=== PATIENT | female | born 1975 | race Caucasian/White ===

== ENCOUNTER 2023-12-19 19:30 | Emergency (ER) | payer OTHER ==
[2023-12-19] MEDS: Orphenadrine 60 MG/2 ML Inj IM ONE (20:24)
[2023-12-19 20:56] LABS: BASOPHILS PERCENT AUTO 0.2 % (0.0-1.0); EOSINOPHILS PERCENT AUTO 1.7 % (1.0-3.0); HEMATOCRIT 34.2 % (37.0-47.0); HEMOGLOBIN 11.5 g/dL (12.0-16.0); LYMPHOCYTES PERCENT AUTO 16.2 % (20.5-50.1); MEAN CORPUSCULAR HEMOGLOBIN 30.8 pg (27.0-34.0); MEAN CORPUSCULAR HGB CONC 33.6 g/dL (33.0-35.0); MEAN CORPUSCULAR VOLUME 91.7 fL (80-100); MONOCYTES PERCENT AUTO 11.1 % (2-8); NEUTROPHILS PERCENT AUTO 70.8 % (42.2-75.2); PLATELET COUNT,PLT 244 10^3/uL (150-450); RED BLOOD CELL COUNT 3.73 10^6/uL (4.2-5.4); WHITE BLOOD CELL COUNT,WBC 13.3 10^3/uL (5.0-10.0)
[2023-12-19] MEDS: Sodium Chloride 0.9% 10 ML Syringe FLUSH PRN (21:01)
[2023-12-19] MEDS: Sodium Chloride 0.9% 1,000 ML IV ONE (21:06)
[2023-12-19 21:17] LABS: ALBUMIN 3.7 g/dL (3.4-5.0); ANION GAP 12.9 mEq/L (7-13); BILIRUBIN TOTAL 0.2 mg/dL (0.2-1.0); BUN/CREATININE RATIO 16.9 (No establ ref range); CALCIUM 9.2 mg/dL (8.5-10.1); CREATININE 0.83 mg/dL (0.55-1.02); EST CRCL DRUG DOSING (CG) 63.23 mL/min; POTASSIUM,K 3.9 mmol/L (3.5-5.1); PROTEIN TOTAL,TP 7.4 g/dL (6.4-8.2)
[2023-12-19] MEDS: Ketorolac 30 MG/ML SDV IVPUSH ONE (21:42)
== END 2023-12-19 22:23 | disposition home or self-care (01) ==
LOC: DL.ED 19:30
DX: S43.401A Unspecified sprain of right shoulder joint, initial encounter (principal); B34.9 Viral infection, unspecified; Z91.018 Allergy to other foods; Z79.899 Other long term (current) drug therapy; W19.XXXA Unspecified fall, initial encounter
CPT/HCPCS: 36415; 80053; 84145; 85025; 96372; 96374; 99283; J1885; J2360; J7030; 99284; J3490